=== PATIENT | female | born 1965 | race American Indian/Alaskan Native ===

== ENCOUNTER 2016-08-20 11:30 | Inpatient (IN) | payer MEDICARE, MEDICAID ==
[~2016-08-20] VITALS: Ht 154.9 cm; Wt 82.6 kg
--- NOTE | ~2016-08-20 | DS ---
PATIENT'S NAME: MARYAM NORWOOD [facility] AGE: 51 Y [address] ROOM: [address] [address] LOCATION: [facility] ADMIT DATE: 08/20/2016 Discharge Summary DISCHARGE DATE: 08/24/2016 FAMILY PHYSICIAN: SANA REYNOLDS ATTENDING PHYSICIAN: Clementina Palacios REASON FOR ADMISSION: The patient is a 51-year-old female who presented with neck and arm pain. MRI showed severe spinal stenosis with spinal cord compression and myelopathy. The patient was admitted directly from the clinic where I saw her to the floor to prepare her for surgery. She was myelopathic and at significant risk for irreversible neurological injury. TREATMENT RENDERED: The patient was taken to the operating room on 08/21/2016 and underwent anterior cervical diskectomy, fusion and plating from C4-C7. The patient's surgery was complicated by some spinal fluid leak intraoperatively. Postoperatively, her pain got better, but she had prevertebral tissue swelling consistent with hematoma. This was observed very closely and did not require any surgical intervention. Meanwhile the pain she came in with improved significantly and she was now able to use her arms much better than before surgery. The patient did well and by the 08/24/2016 was ready for discharge. At this time, the neck swelling was much improved and incision was healing well. She was swallowing without difficulty and speaking without any problems. The patient has been discharged home and will be followed up in the Neurosurgery Clinic in a couple of weeks to see how she is doing. FINAL DIAGNOSES: Cervical spinal cord compression and myelopathy status post cervical decompression and fusion. MD CAROLA VILCHIS/alanl /[id number] d: 09/02/16 0205 t: 09/03/16 220, DISCHARGE SUMMARY
--- NOTE | ~2016-08-20 | OR ---
PATIENT'S NAME: MARYAM NORWOOD [facility] AGE: 51 Y [address] ROOM: [place] [address] LOCATION: [facility] ADMIT DATE: 08/20/2016 OR/Procedure Report DISCHARGE DATE: FAMILY PHYSICIAN: SANA REYNOLDS ATTENDING PHYSICIAN: Clementina Palacios SURGEON: Clementina Palacios MD SPECIALTY FOODS COOK: Ronal Thompson. DATE OF PROCEDURE: 08/21/2016 PREOPERATIVE DIAGNOSIS: Cervical spinal cord compression from disk herniation. POSTOPERATIVE DIAGNOSIS: Cervical spinal cord compression from disk herniation. PROCEDURES PERFORMED: 1. Anterior cervical diskectomy with decompression of neural elements and foraminotomy at C4-C5. 2. Anterior cervical diskectomy with decompression of neural elements at C5- C6. 3. Anterior cervical diskectomy with decompression of neural elements at C6- C7. 4. Structural allograft and morselized allograft fusion at C4-C5. 5. Structural allograft and morselized allograft fusion at C5-C6. 6. Structural allograft and morselized allograft fusion at C6-C7. 7. Anterior cervical plating with Globus plate from C4-C7. ANESTHESIA: General. ANESTHESIA PROVIDER: Zac Garcia MD. HISTORY: This patient is a 51-year-old female who presented with clinical and radiological findings consistent with spinal cord compression and cervical myelopathy. The patient was becoming increasingly disabled by the spinal cord compression and pain. I admitted her to hospital for pain management and scheduled her surgery on a fairly urgent basis given the severity of her spinal cord compression. I went over the procedure, benefits and risks with the patient and the gentleman, who came to clinic with her and with the patient's consent. She was brought to the operating room for surgery. PROCEDURE IN DETAIL: In the operating room, the patient was placed in a supine position. Anesthesia was induced. She was intubated. The roll was placed under her shoulders and her head was supported on a gel donut. The incision was marked out on the right side of the neck and the whole area was prepped and draped in a sterile fashion. Local anesthesia was infiltrated. PATIENT'S NAME: MARYAM NORWOOD [facility] AGE: 51 Y [address] ROOM: [place] [address] LOCATION: [facility] ADMIT DATE: 08/20/2016 OR/Procedure Report DISCHARGE DATE: FAMILY PHYSICIAN: SANA REYNOLDS ATTENDING PHYSICIAN: Clementina Palacios The #10 blade was used to open the incision and deepened it to the sternomastoid. The anterior border of the sternomastoid muscle was explored and the omohyoid muscle became visible. Dissection was carried out between the omohyoid and sternomastoid muscles with the carotid artery retracted laterally and the esophagus and trachea retracted medially. The Cloward handheld retractors were used to facilitate dissection until we got to the anterior surface of the spine. Intraoperative x-ray was obtained to verify that we were at the desired level. The longus colli muscles were dissected off the anterior surface of the spine and belt maker helper retractors were placed to maintain exposure. Diskectomy was carried out at C5-C6, C4-C5 and C6-C7. The rongeur was used to remove the anterior osteophytes that were covering the disk spaces. The disk was then incised and pituitary rongeur was used to pull out the disk material. The C5-C6 disk space was extremely narrow and some drilling was carried out just to expose the disk space. Decompression continued until we got to the posterior longitudinal ligament. The ligament was elevated with the sharp nerve hook and divided with a #15 blade. Kerrison was then used to remove the rest of the posterior longitudinal ligament as well as the posterior osteophytes. Microscope was brought in and under microscopic vision, the decompression was continued at all 3 disk space levels until the dura was visualized and there was no residual compression. Foraminotomy was also carried out bilaterally at all 3 levels. At the end of the decompression, the dura could be seen clearly and the posterior osteophytes had been removed. During the decompression, there was a small spinal fluid leak on the left side at C6-C7. The dura was quite thin at this area. A small DuraGen was placed around this area of dural deficiency and there was no obvious spinal fluid leak after this. Another small spinal fluid leak was seen at C4-C5, but there was no clear source for this. A small piece of DuraGen was also placed in this area where the spinal fluid was seen. Hemostasis was achieved. Appropriate sized pieces of bone grafts were inserted into C4-C5, C5-C6, and C6-C7. The bone graft was prefilled with demineralized bone matrix to facilitate fusion. We had a very snug fit at all 3 levels. PATIENT'S NAME: MARYAM NORWOOD [facility] AGE: 51 Y [address] ROOM: [id number] [place] [id number] LOCATION: [facility] ADMIT DATE: 08/20/2016 OR/Procedure Report DISCHARGE DATE: FAMILY PHYSICIAN: SANA REYNOLDS ATTENDING PHYSICIAN: Clementina Palacios Irrigation was used to washout the debris. I should mention that before the bone grafts were inserted, the adjacent endplates at the 3 disk space levels were drilled down to expose underlying bone to facilitate fusion. After the bone grafts were placed, an anterior plate was used to reinforce the fusion. Screws were attached to the C4, C5 and C6. Another x-ray was obtained to verify that the screws, grafts and plates were in satisfactory position. The incision was then closed in layers using appropriate suture materials. A sterile dressing was applied. The patient's anesthesia was reversed. She was extubated and taken to the recovery room to complete her recovery. I was present at and performed every aspect of this procedure. There was a small spinal fluid leak on the left side at C6-C7 and the DuraGen was used to cover this area. There was also a small spinal fluid seen coming out from the left side at C3-C4, but there was no obvious source for this one. I expect the patient to benefit from this procedure and hopefully some of her weakness will recover. MD OSCAR VILCHISO/modl /[id number] CC: Tnoi Dyer MD d: 08/21/16 2350 t: 08/29/16 0903, OPERATIVE SUMMARY
[2016-08-20 14:30] LABS: BASOPHIL % 0.3 %; EOSINOPHIL % 0.1 %; HEMATOCRIT 39.4 % (33.0-46.0); HEMOGLOBIN 12.5 g/dL (10.0-15.0); IMMATURE GRANULOCYTE # 0.1 K/uL (0.0-0.3); IMMATURE GRANULOCYTE % 0.6 %; LYMPHOCYTE # 2.5 K/uL (0.8-4.0); LYMPHOCYTE % 27.3 %; MCH 25.4 pg (27.0-34.0); MCHC 31.7 gm/dL (32.0-36.5); MCV 80.1 fl (83.0-98.0); MONOCYTE # 0.6 K/uL (0.0-1.0); MONOCYTE % 6.3 %; MPV 10.8 fl (9.4-12.4); NEUTROPHIL # (ANC) 5.9 K/uL (1.8-7.8); NEUTROPHIL % 65.4 %; NRBC % 0 /100WBC (0-0.00); PLATELET COUNT 337 K/uL (150-450); RBC 4.92 M/uL (3.50-5.50)
[2016-08-20] MEDS ORDERED: ULTRAM50 MG PO ×2 (14:31→14:32)
[2016-08-20] MEDS ORDERED: CYMBALTA60 MG PO (14:32)
[2016-08-20] MEDS ORDERED: PRINIVIL (ZESTRI5 MG PO (14:33)
[2016-08-20] MEDS ORDERED: LYRICA225 MG PO (14:33)
[2016-08-20] MEDS ORDERED: TOPROL XL100 MG PO (14:33)
[2016-08-20] MEDS ORDERED: DELTASONE10 MG PO ×2 (14:37→14:38)
[2016-08-20 14:39] LABS: INR - (THERAPEUTIC) 0.96 (0.92-1.07); PROTIME 10.1 SECONDS (9.8-11.4); PTT 25 SECONDS (25-32)
[2016-08-20] MEDS ORDERED: DICLOFENAC SODI75 MG PO (14:39)
[2016-08-20] MEDS ORDERED: DEPAKOTE DELAY250 MG PO ×2 (14:39→14:40)
[2016-08-20] MEDS ORDERED: LIDOCAINE35.44 GM TOP (14:47)
[2016-08-20 14:50] LABS: ALBUMIN 3.6 gm/dL (3.5-5.0); ALK PHOS 61 IU/L (33-138); ALT 24 IU/L (12-78); ANION GAP 14.4 (10.0-19.0); AST 15 IU/L (10-40); BLOOD UREA NITROGEN 20 mg/dL (6-24); CALCIUM 8.4 mg/dL (8.5-10.5); CHLORIDE 106 mMol/L (96-110); CO2 26 mMol/L (22-32); CREATININE 0.9 mg/dL (0.5-1.1); ESTIMATED GFR (MDRD EQUATION) > 60; POTASSIUM 4.4 mMol/L (3.7-5.1); SODIUM 142 mMol/L (135-145); TOTAL BILIRUBIN 0.2 mg/dL (0.0-1.5); TOTAL PROTEIN 7.5 g/dL (6.0-8.4)
[2016-08-24] MEDS ORDERED: NORCO 5-325 TA1 EACH PO (10:53)
== END 2016-08-24 14:38 | disposition disaster alternative care site (69) | DRG 472 ==
LOC: EDBD 11:30 → GNTU 13:18
PROVIDERS: ADMIT Neurological Surgery
PROC: 0RB30ZZ Excision of Cervical Vertebral Disc, Open Approach (ICD-10-PCS; principal; 2016-08-21)
PROC: 00UT0JZ Supplement Spinal Meninges with Synthetic Substitute, Open Approach (ICD-10-PCS; principal; 2016-08-21)
PROC: 0RG2070 Fusion of 2 or more Cervical Vertebral Joints with Autologous Tissue Substitute, Anterior Approach, Anterior Column, Open Approach (ICD-10-PCS; principal; 2016-08-21)
DX: M50.021 Cervical disc disorder at C4-C5 level with myelopathy (principal); G96.0 Cerebrospinal fluid leak; M47.12 Other spondylosis with myelopathy, cervical region; I10 Essential (primary) hypertension; M50.022 Cervical disc disorder at C5-C6 level with myelopathy; M50.023 Cervical disc disorder at C6-C7 level with myelopathy; M47.22 Other spondylosis with radiculopathy, cervical region; M06.9 Rheumatoid arthritis, unspecified; M19.90 Unspecified osteoarthritis, unspecified site; M79.7 Fibromyalgia; G43.909 Migraine, unspecified, not intractable, without status migrainosus; B19.20 Unspecified viral hepatitis C without hepatic coma; Z79.52 Long term (current) use of systemic steroids; Z79.899 Other long term (current) drug therapy
CPT/HCPCS: C1713; J0131; J0690; J1100; J1170; J2250; J2270; J2405; J3010; J3360; J7030

== ENCOUNTER → 2016-10-29 | Outpatient (CLI) | payer MEDICARE, MEDICAID ==
[~2016-10-29] MED LIST: CYMBALTA60 MG PO; DELTASONE10 MG PO; DEPAKOTE DELAY250 MG PO; DICLOFENAC SODI75 MG PO; LIDOCAINE35.44 GM TOP; LYRICA225 MG PO; NORCO 5-325 TA1 EACH PO; PRINIVIL (ZESTRI5 MG PO; TOPROL XL100 MG PO; ULTRAM50 MG PO
== END | disposition disaster alternative care site (69) ==
LOC: GRAD 15:16
DX: M54.2 Cervicalgia (principal); Z98.890 Other specified postprocedural states

== ENCOUNTER → 2016-10-29 | Outpatient (CLI) | payer MEDICARE, MEDICAID | END | disposition disaster alternative care site (69) | LOC: GRAD 16:42 | DX: R51 Headache (principal) ==